=== PATIENT | male | born 1955 | race Caucasian/White ===

== ENCOUNTER 2017-05-12 09:56 | Emergency (ER) | payer OTHER ==
[2017-05-12 10:07] VITALS: BP 161/94
--- NOTE | 2017-05-12 10:27 | UC ---
Lower Extremity/Ankle HPI - HPI Summary HPI Summary: 62 Y/O male being seen for C/O R great toe swelling and erythema. began to have pain and swelling on 05/11/17 and reports that he was able to express pus from wound last night. Today without exudate. Erythema around nail bed. Discussed elevated B/P with Mr Castañeda. takes antihypertensives as directed and his who is a RN checks B/P daily at home. will monitor BP and agrees to follow up with PCP for continued elevations. medications reviewed at this visit. - History of Current Complaint Chief Complaint: UCLowerExtremity Stated Complaint: FOOT COMPLAINT Time Seen by Provider: 05/12/17 09:59 Hx Obtained From: Patient Onset/Duration: Sudden Onset Severity Initially: Mild Severity Currently: Mild Pain Scale Used: 0-10 Numeric - Pain when resting 0 /10 - Allergies/Home Medications Allergies/Adverse Reactions: Allergies Allergy/AdvReac Type Severity Reaction Status Date / Time Codeine Allergy Hallucinati Verified 05/12/17 10:03 ons Valsartan [From Diovan] Allergy Unknown Verified 05/12/17 10:03 Reaction Details PMH/Surg Hx/FS Hx/Imm Hx Previously Healthy: Yes Cardiovascular History: Hypertension - Surgical History Surgical History: None Surgery Procedure, Year, and Place: Tonsillectomy 1957, appendectomy 1966, [facility] laser eye surgery for glaucoma - Family History Known Family History: Positive: None - Social History Alcohol Use: Occasionally Substance Use Type: None Smoking Status (MU): Current Every Day Smoker Type: Cigarettes Amount Used/How Often: quit 1991 Have You Smoked in the Last Year: No - Immunization History Most Recent Influenza Vaccination: fall 2012 Most Recent Tetanus Shot: 2011 Most Recent Pneumonia Vaccination: none Review of Systems Skin: Other - Swelling erythema to R first toe Respiratory: Negative Cardiovascular: Negative Gastrointestinal: Negative Genitourinary: Negative Motor: Negative Neurovascular: Negative Musculoskeletal: Negative Neurological: Negative Psychological: Negative All Other Systems Reviewed And Are Negative: Yes Physical Exam Triage Information Reviewed: Yes Appearance: Well-Appearing Vital Signs: Initial Vital Signs Temp 98.6 F 05/12/17 10:05 Pulse 80 05/12/17 10:05 Resp 14 05/12/17 10:05 BP 161/94 05/12/17 10:05 Pulse Ox 94 05/12/17 10:05 Vital Signs Reviewed: Yes Eye Exam: Normal ENT Exam: Normal Respiratory Exam: Normal Respiratory: Positive: Normal breath sounds Cardiovascular Exam: Normal Cardiovascular: Positive: RRR Abdominal Exam: Normal Bowel Sounds: Positive: Present Musculoskeletal Exam: Normal Neurological Exam: Normal Psychological Exam: Normal Skin: Positive: Other - Swelling and erythema to R great toe Lower Extremity Course/Dx - Differential Dx/Diagnosis Differential Diagnosis/HQI/PQRI: Contusion, Gout, Infection Provider Diagnoses: R great toe infection Discharge - Discharge Plan Condition: Stable Disposition: HOME Patient Education Materials: Wound Infection (ED) Additional Instructions: Take antibiotics as directed. Follow up with senior java developer to address possible need for care / removal of great toe nail. Monitor blood pressure and if BP remains elevated please follow up with primary care provider or return to urgent care.
== END 2017-05-12 10:48 | disposition home or self-care (01) ==
LOC: UCEAST 09:56
DX: L08.9 Local infection of the skin and subcutaneous tissue, unspecified (principal); I10 Essential (primary) hypertension
CPT/HCPCS: 99212; G0463